=== PATIENT | male | born 1995 | race Two or more races ===

== ENCOUNTER 2022-02-16 23:08 | Emergency (ER) | payer SELFPAY ==
[~2022-02-16] VITALS: Ht 175.3 cm; Wt 85.9 kg
[2022-02-16 23:25] VITALS: BP 135/69
[2022-02-17] MEDS ORDERED: ASPirin 325 MG TAB PO ONE
== END 2022-02-17 02:17 | disposition left against medical advice (07) ==
LOC: ER 23:08
DX: R51.9 Headache, unspecified (principal); R07.89 Other chest pain; Z53.21 Procedure and treatment not carried out due to patient leaving prior to being seen by health care provider
CPT/HCPCS: 93005